=== PATIENT | female | born 2000 | race Caucasian/White ===

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

== ENCOUNTER → 2018-02-01 | Outpatient (CLI) | payer OTHER | LOC: COL.VAS 12:30 | DX: I51.7 Cardiomegaly (principal) ==

== ENCOUNTER 2018-03-13 23:08 | Emergency (ER) | payer OTHER ==
[~2018-03-13] VITALS: Ht 175.3 cm; Wt 72.7 kg
[2018-03-14 00:07] VITALS: BP 133/68; PULSE 89
== END 2018-03-14 00:07 | disposition home or self-care (01) ==
LOC: COL.ER 23:08
DX: T85.698A Other mechanical complication of other specified internal prosthetic devices, implants and grafts, initial encounter (principal); Z79.52 Long term (current) use of systemic steroids; Z79.51 Long term (current) use of inhaled steroids

== ENCOUNTER → 2018-03-13 | Outpatient (REF) ==
[2018-03-13 18:56] LABS: C-REACTIVE PROTEIN 1.9 mg/dL (0.0-0.9)
== END ==
LOC: ZLAB.WCH 18:37
PROVIDERS: Family Medicine
DX: Z01.89 Encounter for other specified special examinations (principal)

== ENCOUNTER → 2018-04-03 | Outpatient (CLI) | payer OTHER | LOC: COL.RAD 08:17 | DX: K31.84 Gastroparesis (principal) | CPT/HCPCS: A9541 ==

== ENCOUNTER 2018-05-16 15:09 | Outpatient (CLI) | payer OTHER ==
[~2018-05-16] VITALS: Ht 175.3 cm; Wt 75.0 kg
[2018-05-16] MEDS ORDERED: SANDOSTATI IJ ×2 (15:51→15:52)
[2018-05-16] MEDS ORDERED: TRANSDERM-0.5 MG/21 TD (15:53)
[2018-05-16] MEDS ORDERED: PHENERGAN 25 TA25 MG PO (15:53)
[2018-05-16 16:02] VITALS: BP 92/52; PULSE 105; TEMP 98.5
== END 2018-05-16 16:10 | disposition home or self-care (01) ==
LOC: EUO 15:09
DX: E34.0 Carcinoid syndrome (principal)

== ENCOUNTER → 2019-03-25 | Outpatient (CLI) | payer OTHER ==
[~2019-03-25] MED LIST changes: +PHENERGAN 25 TA25 MG PO; +SANDOSTATI IJ; +TRANSDERM-0.5 MG/21 TD
== END ==
LOC: COL.RAD 08:19
DX: R10.84 Generalized abdominal pain (principal); Z90.49 Acquired absence of other specified parts of digestive tract; Z93.1 Gastrostomy status
CPT/HCPCS: Q9967

== ENCOUNTER 2019-04-24 18:45 | Emergency (ER) | payer OTHER ==
[~2019-04-24] VITALS: Ht 175.3 cm; Wt 74.1 kg
[2019-04-24 18:56] VITALS: TEMP 97.6
[2019-04-24 22:19] VITALS: BP 113/79; PULSE 97
== END 2019-04-24 22:19 | disposition home or self-care (01) ==
LOC: COL.ER 18:45
DX: K94.23 Gastrostomy malfunction (principal); Z79.51 Long term (current) use of inhaled steroids

== ENCOUNTER → 2019-05-02 | Outpatient (CLI) | payer OTHER ==
[2019-05-02 17:12] VITALS: BP 93/58; TEMP 97.8
[2019-05-02 18:00] VITALS: PULSE 86
== END ==
LOC: COL.ER 16:56
DX: Z43.1 Encounter for attention to gastrostomy (principal)
CPT/HCPCS: 31006; B4087

== ENCOUNTER 2019-05-10 12:06 | Emergency (ER) | payer OTHER ==
[~2019-05-10] VITALS: Ht 175.3 cm; Wt 72.7 kg
[2019-05-10 12:21] VITALS: BP 123/62; TEMP 98
[2019-05-10 14:02] VITALS: PULSE 88
== END 2019-05-10 14:02 | disposition home or self-care (01) ==
LOC: COL.ER 12:06
DX: K94.23 Gastrostomy malfunction (principal); Z79.51 Long term (current) use of inhaled steroids

== ENCOUNTER 2019-10-09 15:30 | Outpatient (RCR) | payer OTHER ==
[2019-10-04 15:30] VITALS: BP 104/53; PULSE 113; TEMP 99.3
[2019-10-07 16:29] VITALS: BP 105/62; PULSE 96; TEMP 98.9
[~2019-10-09] VITALS: Ht 175.3 cm; Wt 74.1 kg
[~2019-10-09 15:30] MED LIST changes: +PEPCID 40INJ IV; +PHENERGAN 25 TA25 MG IV; -PHENERGAN 25 TA25 MG PO; +PROTONIX20 MG IV
[2019-10-09 15:57] VITALS: BP 117/19; PULSE 101
== END 2019-10-09 17:30 | disposition home or self-care (01) ==
LOC: EUO 15:30
DX: E34.0 Carcinoid syndrome (principal); D50.9 Iron deficiency anemia, unspecified; K90.9 Intestinal malabsorption, unspecified; Z79.899 Other long term (current) drug therapy
CPT/HCPCS: J1200; J1644; J2405; J2916

== ENCOUNTER → 2019-12-06 | Outpatient (CLI) | payer OTHER | LOC: COL.RAD 10:00 | DX: K52.81 Eosinophilic gastritis or gastroenteritis (principal); D89.42 Idiopathic mast cell activation syndrome; E53.8 Deficiency of other specified B group vitamins; K31.84 Gastroparesis; Z90.49 Acquired absence of other specified parts of digestive tract; Z96.9 Presence of functional implant, unspecified ==

== ENCOUNTER → 2020-04-14 | Outpatient (CLI) | payer OTHER ==
[~2020-04-14] MED LIST changes: +ACETIV IV; +BD POSIFLUSH SF10 ML IV; +BUPRENORPHINE HC8 MG SL; +BUTRANS20 MCG/HR TD; +CALDOLOR800 MG/8 M IV; +CYANOCOBAL1000 MCG/1 IM; +PHENERGAN25 MG/ML IV; +PROTONIX I40 MG/VIAL IV; +VALIUM 10MG/25 MG/ML IV; +VANCO 1 GR1 GM/250 M IV; +ZOFRAN ODT4 MG SL; +[UNRECOGNIZED DRUG - CODE] TOP
== END ==
LOC: ZLAB.WCH 16:57
DX: U07.1 COVID-19 (principal)

== ENCOUNTER 2020-04-27 15:24 | Outpatient (CLI) | payer OTHER | END 2020-04-27 15:55 | disposition home or self-care (01) | LOC: EUO 15:24 | DX: Z01.89 Encounter for other specified special examinations (principal) ==

== ENCOUNTER 2020-06-02 13:31 | Outpatient (CLI) | payer OTHER ==
[~2020-06-02] VITALS: Ht 172.7 cm; Wt 79.9 kg
--- NOTE | 2020-06-02 14:00 | NUR ---
Received a phone call from patient's mother regarding PICC. Reported nursing staff at [facility] unable to remove extension sets. Numerous nurses attempted to remove extension sets along with patient's father at home. Unable to remove extensions. patient is receiving TPN administration at home. Advised patient to come to the express unit for evaluation. Patient in the express unit. Right upper arm PICC intact. I had to use forceps to remove extension since. Hopes cleansed with alcohol 2 and new caps applied. No extensions applied. Advised patient to inform [facility] to apply Dressing Changes. No Other Concerns Voiced. No Signs or Symptoms of IV Complications Noted. Patient to Return to [facility] as Scheduled for Cares Patient Voiced Understanding of Instructions. Both lumens flushed with 10 mL normal saline with good blood return noted.
[2020-06-02 14:05] VITALS: BP 112/75; PULSE 105; TEMP 98.6
== END 2020-06-03 16:12 ==
LOC: EUO 13:31
DX: E34.0 Carcinoid syndrome (principal); K59.8 Other specified functional intestinal disorders; Z79.899 Other long term (current) drug therapy; Z95.9 Presence of cardiac and vascular implant and graft, unspecified

== ENCOUNTER → 2020-12-22 | Outpatient (REF) | LOC: ZLAB.WCH 09:55 | DX: Z01.89 Encounter for other specified special examinations (principal) ==

== ENCOUNTER → 2021-02-12 | Outpatient (CLI) | payer OTHER | LOC: ZLAB.WCH 18:29 | DX: Z01.89 Encounter for other specified special examinations (principal) ==

== ENCOUNTER → 2021-03-17 | Outpatient (REF) | LOC: ZLAB.WCH 09:39 | DX: Z01.89 Encounter for other specified special examinations (principal) ==

== ENCOUNTER → 2021-03-24 | Outpatient (REF) | LOC: ZLAB.WCH 09:44 | DX: Z01.89 Encounter for other specified special examinations (principal) ==

== ENCOUNTER → 2021-03-30 | Outpatient (REF) | LOC: ZLAB.WCH 10:11 | DX: Z01.89 Encounter for other specified special examinations (principal) ==

== ENCOUNTER → 2021-04-06 | Outpatient (REF) | LOC: ZLAB.WCH 09:38 | DX: Z01.89 Encounter for other specified special examinations (principal) ==

== ENCOUNTER → 2021-04-13 | Outpatient (REF) | LOC: ZLAB.WCH 12:20 | DX: Z01.89 Encounter for other specified special examinations (principal) ==

== ENCOUNTER → 2021-04-21 | Outpatient (REF) | LOC: ZLAB.WCH 09:27 | DX: Z01.89 Encounter for other specified special examinations (principal) ==

== ENCOUNTER → 2021-04-27 | Outpatient (REF) | LOC: ZLAB.WCH 15:40 | DX: Z01.89 Encounter for other specified special examinations (principal) ==

== ENCOUNTER → 2021-05-17 | Outpatient (REF) | LOC: ZLAB.WCH 18:16 | DX: Z01.89 Encounter for other specified special examinations (principal) ==

== ENCOUNTER → 2021-06-01 | Outpatient (REF) | LOC: ZLAB.WCH 09:38 | DX: Z01.89 Encounter for other specified special examinations (principal) ==

== ENCOUNTER → 2021-06-08 | Outpatient (REF) | LOC: ZLAB.WCH 09:57 | DX: Z01.89 Encounter for other specified special examinations (principal) ==

== ENCOUNTER → 2022-01-12 | Outpatient (CLI) | payer OTHER | LOC: COL.VAS 12:58 | DX: R06.02 Shortness of breath (principal) ==